=== PATIENT | male | born 1980 | race Two or more races ===

== ENCOUNTER 2024-07-05 09:40 | Emergency (ER) | payer MEDICAID, SELFPAY ==
[2024-07-05 09:51] VITALS: BP 138/89; PULSE 74; RESP 18; TEMP 36.7; O2SAT 96; BMI 29.1
--- NOTE | 2024-07-05 09:54 | XR_ITS ---
Examination: Examination: PA lateral chest 2 views Technique: Upright PA lateral chest 2 views Exam date and time: July 05, 2024 1008 hrs. Indications: Shortness breath chest pain today. Findings: Normal heart size Mild vascular congestion. Osseous structures are intact Impression: Mild vascular congestion
--- NOTE | 2024-07-05 09:54 | EKG_ITS ---
[facility] Test Date: 2024-07-05 Pat Name: AILYN CUNNINGHAM Department: Room: - Gender: Male Transplant Rn: : 1980 Requested By: Fernando Becker (RIKA) Order Number: [id number] Reading MD: Fernando Becker ([employer]) Measurements Intervals [place] Rate: 71 P: 42 KS: 148 QRS: 25 QRSD: 81 T: 34 QT: 348 QTc: 380 Interpretive Statements SINUS RHYTHM No previous ECG available for comparison /[email or web address]/[id number].pdf
--- NOTE | 2024-07-05 09:54 | XR_ITS ---
Examination: CT brain head without contrast. 2-D sagittal coronal reconstructions Date and time of exam:07/05/2024, 10:33 AM INDICATION: Dizziness comparison: 04/04/2023 CTDI: vol (mGy):47.4 DLP: (mGycm):1006 Technique: Multiple CT axial sections of the brain have been obtained, 5 mm slice thickness. Contrast has not been administered. 2-D sagittal, coronal reconstructions have been obtained Low dose protocols were performed. One or more of the following dose reduction techniques were used; automated exposure control, adjustment of the mA and/or KV according to patient size, use of iterative reconstruction technique. Findings: No significant ventricular enlargement. Intra-axial or extra-axial hemorrhage density is not seen. No mass effect or midline shift Basal cisterns are not remarkable. Fourth ventricle is midline. Cranial vault intact. Impression: Negative for acute hemorrhage, mass effect or midline shift
--- NOTE | 2024-07-05 09:54 | PD.EDRME ---
Rapid Medical Screening Exam RME Arrival date/time: 07/05/24 09:40 43-year-old male presents the emergency department for complaints of headache and dizziness x 8 days Chief Complaint: General Adult/Misc Complain Vital signs: Vital Signs Temperature 98.1 F 07/05/24 09:51 Pulse Rate 74 07/05/24 09:51 Respiratory Rate 18 07/05/24 09:51 Blood Pressure 138/89 H 07/05/24 09:51 Pulse Oximetry (%) 96 07/05/24 09:51 Oxygen Delivery Method Room Air 07/05/24 09:51
[2024-07-05 10:14] LABS: Basophils % (Auto) 1 % (0-2.5); Eosinophils # (Auto) 0.1 Thou/mm3 (0.0-0.5); Eosinophils % (Auto) 2 % (0-10); Hemoglobin 15.5 g/dL (13.5-16.0); Immature Granulocytes % (Auto) 0 % (0-0); Immature Granulocytes Auto 0.01 Thou/mm3 (0.00-0.00); Lymphocytes # (Auto) 1.3 Thou/mm3 (1.0-4.8); Lymphocytes % (Auto) 22 % (10-50); Mean Corpuscular HGB Conc 35.2 g/dl (31.0-37.0); Mean Corpuscular Hemoglobin 31.1 pg (25.0-35.0); Mean Corpuscular Volume 88 fL (80-100); Monocytes # (Auto) 0.6 Thou/mm3 (0.0-0.8); Monocytes % (Auto) 11 % (0-12); Neutrophils # (Auto) 3.8 Thou/mm3 (1.8-7.7); Neutrophils % (Auto) 64 % (37-80); Nucleated Red Blood Cell % 0 /100 WBC (0); Platelet Count 196 Thou/mm3 (140-440); RDW Standard Deviation 38.7 fL (35.1-43.9); Red Blood Count 4.99 Miln/mm3 (4.50-5.90); White Blood Count 5.9 Thou/mm3 (3.8-10.6)
[2024-07-05 10:34] LABS: Alanine Aminotransferase 35 U/L (10-49); Albumin, Serum 4.5 gm/dL (3.5-5.0); Albumin/Globulin Ratio 1.7 (1.2-2.2); Alkaline Phosphatase 65 U/L (46-116); Anion Gap 6 (7-16); Aspartate Amino Transferase 36 U/L (0-34); BUN/Creatinine Ratio 12 Ratio (12-20); Bilirubin,Total 0.8 mg/dL (0.3-1.2); Blood Urea Nitrogen 11 mg/dL (9-23); Calcium 9.2 mg/dL (8.3-10.6); Calcium (Corrected) 9.2 mg/dL (8.5-10.1); Carbon Dioxide 26.7 mMol/L (20.0-31.0); Chloride 107 mMol/L (98-107); Creatinine (Component) 0.9 mg/dL (0.6-1.3); Estimated Creatinine Clearance 103.8 mL/min (>60); Globulin 2.6 gm/dL (2.3-3.5); Glucose 103 mg/dL (74-106); Osmolality,Calculated 278 (275-295); Potassium 4.2 mMol/L (3.4-5.1); Sodium 140 mMol/L (136-145); Total Protein 7.1 gm/dL (5.7-8.2); Troponin I < 0.002 ng/mL (0.0-0.045); eGFR > 60 See Note
[2024-07-05 10:49] LABS: Amphetamine/Methamp Scrn,U Negative (Negative); Barbiturate Screen,Urine Negative (Negative); Benzodiazepines Screen,Urine Negative (Negative); Benzoylecgonine Screen, Ur Negative (Negative); Fentanyl Screen,Urine Negative (Negative); Opiate Screen,Urine Negative (Negative); THC Screen,Urine Negative (Negative)
--- NOTE | 2024-07-05 12:01 | EDNOTE_ITS ---
ED General RME/HPI General Chief complaint: General Adult/Misc Complain Stated complaint: Headache, left sided weakness, and dizziness Time Seen by Provider: 07/05/24 11:53 Arrival date/time: 07/05/24 09:40 RME / HPI RME / HPI narrative: 43-year-old male patient with no significant medical history, came in for evaluation regarding headache. Patient's been having headache for the last 8 days, associated with dizziness. Denies any slurring of speech. Denies any upper or lower extremity lateralization weakness. Patient is ambulatory. Denies any head trauma, fall, fever, neck pain or other complaints. Related Data Previous Rx's ?Medication ?Instructions ?Recorded ibuprofen 800 mg tablet 800 mg PO TID PRN pain #30 t abs 07/05/24 meclizine 50 mg tablet 50 mg PO BID PRN dizziness # 20 tabs 07/05/24 Allergies Allergy/AdvReac Type Severity Reaction Status Date / Time No Known Allergies Allergy Verified 07/05/24 09:47 Review of Systems Review of Systems Narrative Review of Systems: Review of system reviewed and within normal limits except mentioned in HPI ED Exam Narrative Physical exam: VITAL SIGNS: Reviewed. GENERAL APPEARANCE: Alert and interactive, follows commands, no acute distress, HEAD AND FACE: Non-traumatic. ENT: PERRL, pink conjunctivitis, eyelid no trauma, Mucous membrane moist. NECK: Supple, nontender, no nuchal rigidity. CHEST: No tenderness, no crepitus, no paradoxical movement, no retractions. LUNGS: Clear, well ventilated, symmetric, no rales, no wheezing, no ronchi, no stridor, good breath sounds bilaterally. HEART: Regular rate, regular rhythm, no murmur, no gallops. ABDOMEN: Soft, positive bowel sounds, nondistended, no guarding, nontender, no rebound, no masses, RECTAL: Deferred. GENITAL: Deferred. NEUROLOGICAL: Gross motor function intact sensory function intact, Appropriate for age. No upper or lower extremity drifting, muscle thread laster 5 out of 5 bilateral hands MUSCULOSKELETAL: low back nontender, full range of motion. EXTREMITIES: Nontender, full range of motion. SKIN: Color pink, dry, no rash, no lacerations, no abrasions, no contusions. LYMPHATICS: Deferred. Course Quality Measures none Orders Category Date Time Status EKG (ED ONLY) *Do not use* NOW Care 07/05/24 09:[address] head/brain wo con Stat Exams 07/05/24 09:54 Completed EKG (ED Only) Stat Exams 07/05/24 09:54 Ordered XR chest 2V Stat Exams 07/05/24 09:54 Taken CBC Stat Lab 07/05/24 10:04 Completed Comprehensive Metabolic Panel Stat Lab 07/05/24 10:04 Completed Drug Screen,Urine Stat Lab 07/05/24 10:09 Completed Troponin I Stat Lab 07/05/24 10:04 Completed Vital Signs Vital signs: Vital Signs Temperature 98.1 F 07/05/24 09:51 Pulse Rate 74 07/05/24 09:51 Respiratory Rate 18 07/05/24 09:51 Blood Pressure 138/89 H 07/05/24 09:51 Pulse Oximetry (%) 96 07/05/24 09:51 Oxygen Delivery Method Room Air 07/05/24 09:51 MDM Patient data External records reviewed:: None Clinical information provided by:: patient Social determinants that could affect healthcare access:: none Patient has the following chronic illnesses:: None How is presenting disease/condition affected by chronic disease/condition?: no chronic disease Evaluation data The following diagnostics were reviewed and interpreted by me:: lab results and radiology exam(s) Lab and/or radiology exams considered but not ordered:: None Interpretation Summary: See results in MDM Medications Medications considered but not ordered:: None Medication administrations:: None none Consultations Consultation(s) initiated? (list below): No Diagnosis Differential Diagnosis ED Complaint MDM: Headache, dizziness, intracranial tumor Most likely diagnosis given after review of the tests above:: Headache, dizziness Admission Indicated Admission indicated?: not indicated Explain why admission is indicated or not indicated:: Stable Admission Request Was there a request for admission?: No Disposition Plan Disposition Plan: Discharge Discharge Attestation Discharge Attestation: The patient was given an opportunity to ask questions and understood the discharge instructions. Discharge instructions specifically effects, indications for sooner follow up or return to the emergency department, and the expected course of current diagnosis. Patient condition: Stable Medical Decision Making MDM Narrative MDM Narrative: 43-year-old male patient with no significant medical history, came in for evaluation regarding headache. Patient's been having headache for the last 8 days, associated with dizziness. Denies any slurring of speech. Denies any upper or lower extremity lateralization weakness. Patient is ambulatory. Denies any head trauma, fall, fever, neck pain or other complaints. Patient's workup today all came back normal including normal CT scan of the head. Results discussed with the patient. Further imaging is not obtained at this time, I did not notice any neurologic deficit at this time. Patient appears nontoxic and hemodynamically stable. Patient discharged home and instructed to follow-up with primary care provider in 24 to 48 hours. Instructed to return to the emergency department immediately if worsening of symptoms Differential Diagnosis Differential Diagnosis: Headache, dizziness, intracranial tumor Lab Data 07/05/24 10:04 07/05/24 10:04 Labs: Lab Results 07/05/24 07/05/24 Range/Units 10:04 10:09 WBC 5.9 (3.8-10.6) Thou/mm3 RBC 4.99 (4.50-5.90) Miln/mm3 Hgb 15.5 (13.5-16.0) g/dL Hct 44.0 (41.0-53.0) % MCV 88 (80-100) fL MCH 31.1 (25.0-35.0) pg MCHC 35.2 (31.0-37.0) g/dl RDW Std Deviation 38.7 (35.1-43.9) fL Plt Count 196 (140-440) Thou/mm3 Neut % (Auto) 64 (37-80) % Lymph % (Auto) 22 (10-50) % Garrett % (Auto) 11 (0-12) % Eos % (Auto) 2 (0-10) % Baso % (Auto) 1 (0-2.5) % Neut # (Auto) 3.8 (1.8-7.7) Thou/mm3 Lymph # (Auto) 1.3 (1.0-4.8) Thou/mm3 Garrett # (Auto) 0.6 (0.0-0.8) Thou/mm3 Eos # (Auto) 0.1 (0.0-0.5) Thou/mm3 Baso # (Auto) 0.0 (0.0-0.2) Thou/mm3 Immature Gran # (Auto) 0.01 H (0.00-0.00) Thou/mm3 Absolute Nucleated RBC 0.00 (0.00-0.00) Thou/mm3 Immature Gran % 0 (0-0) % Nucleated RBC % 0 (0) /100 WBC Sodium 140 (136-145) mMol/L Potassium 4.2 (3.4-5.1) mMol/L Chloride 107 (98-107) mMol/L Carbon Dioxide 26.7 (20.0-31.0) mMol/L Anion Gap 6 L (7-16) BUN 11 (9-23) mg/dL Creatinine 0.9 (0.6-1.3) mg/dL Estim Creat Clear Calc 103.8 (>60) mL/min eGFR > 60 (60 - ) See Note BUN/Creatinine Ratio 12 (12-20) Ratio Glucose 103 (74-106) mg/dL Calculated Osmolality 278 (275-295) Calcium 9.2 (8.3-10.6) mg/dL Corrected Calcium 9.2 (8.5-10.1) mg/dL Total Bilirubin 0.8 (0.3-1.2) mg/dL AST 36 H (0-34) U/L ALT 35 (10-49) U/L Alkaline Phosphatase 65 (46-116) U/L Troponin I < 0.002 (0.0-0.045) ng/mL Total Protein 7.1 (5.7-8.2) gm/dL Albumin 4.5 (3.5-5.0) gm/dL Globulin 2.6 (2.3-3.5) gm/dL Albumin/Globulin Ratio 1.7 (1.2-2.2) Urine Opiates Screen Negative (Negative) Urine Fentanyl Screen Negative (Negative) Ur Barbiturates Screen Negative (Negative) U Amphetamin/Meth Scrn Negative (Negative) U Benzodiazepines Scrn Negative (Negative) U Cocaine Metab Screen Negative (Negative) U Marijuana (THC) Screen Negative (Negative) Discharge Plan Plan Patient Disposition: HOME (Self Care) Disposition Comment: stable Prescriptions/Referrals Prescriptions/Med Rec: New meclizine 50 mg tablet 50 mg PO BID PRN (Reason: dizziness) Qty: 20 0RF ibuprofen 800 mg tablet 800 mg PO TID PRN (Reason: pain) Qty: 30 0RF Referrals: No Primary/Family,Physician [Primary Care Provider] - In 1 week Problem List Clinical Impression: Headache, Dizziness Patient/Caregiver Discharge Instructions Discharge Activity: activity as tolerated Education Materials: ED Dizziness, Uncertain Cause Additional Instructions: Thank you for the opportunity for serving you today. You are stable for discharged . You are advised to: Follow-up with your PCP in 1 to 2 days Return to ED for worsening of symptoms Increase oral fluids Take medication as prescribed Print Language: Faroese Stand Alone Forms: Elisa Award Info., Patient Portal Info Letter
[2024-07-05 12:30] VITALS: BP 120/78; PULSE 63; RESP 18; TEMP 36.9; O2SAT 97
--- NOTE | 2024-07-05 13:07 | PRELIM_ITS ---
Radiographs of the chest ( 2 views). July 05, 2024 1009 hours Clinical History: Chest Pain No prior study is available for comparison. Findings: The heart, mediastinum and pulmonary gregor are unremarkable. Prominent interstitial lung markings are seen. Left basilar atelectasis is seen. There is no pleural effusion. The bony thorax is unremarkable. Impression: Mild vascular congestion. Report Electronically Signed By: Valdo Cazares 07/05/2024 1:06:46 PM [EST]
== END 2024-07-05 12:45 | disposition home or self-care (01) ==
PROVIDERS: Nurse Practitioner Primary Care; Emergency Provider Emergency Medicine
DX: R51.9 Headache, unspecified (principal); R42 Dizziness and giddiness
CPT/HCPCS: 36415; 70450; 71046; 80053; 80307; 84484; 85025; 93005; 99284